=== PATIENT | female | born 1970 | race Caucasian/White ===

== ENCOUNTER → 2017-01-19 | Outpatient (CLI) | payer MEDICAID ==
[~2017-01-19] MED LIST: ALBUTEROL SULFATE 2.5 MG/3 ML VIAL NEB ONE
--- NOTE | 2017-01-21 17:27 | RAD ---
Procedure: XR CHEST 2 VIEWS Exam Date: 01/19/2017 1:02 PM CDT Ordering Provider: MARCOS Garner Clinical Indication: SHORTNESS OF BREATH Comparison: None Findings: The lungs are clear and well-aerated. No pleural effusion or pneumothorax. Cardiac silhouette is normal in size. Impression: No acute pulmonary process. Electronically signed by: Dayo Rizzo MD 01/21/2017 5:26 PM CDT
== END | disposition home or self-care (01) ==
LOC: LAB.O 12:45
PROVIDERS: ATTEND Nurse Practitioner Family
DX: E03.9 Hypothyroidism, unspecified (principal); E66.01 Morbid (severe) obesity due to excess calories; Z68.41 Body mass index [BMI] 40.0-44.9, adult; R06.02 Shortness of breath; R00.2 Palpitations; Z13.220 Encounter for screening for lipoid disorders
CPT/HCPCS: 71020; 93005; 94060; J7611

== ENCOUNTER → 2017-01-20 | Outpatient (CLI) | payer MEDICAID | END | disposition home or self-care (01) | LOC: YCFC.O 08:35 | PROVIDERS: ATTEND Nurse Practitioner Family | DX: E03.9 Hypothyroidism, unspecified (principal); Z00.00 Encounter for general adult medical examination without abnormal findings; Z13.220 Encounter for screening for lipoid disorders; E66.01 Morbid (severe) obesity due to excess calories; Z68.41 Body mass index [BMI] 40.0-44.9, adult ==

== ENCOUNTER → 2017-02-02 | Outpatient (CLI) | payer MEDICAID | END | disposition home or self-care (01) | LOC: LAB.O 09:20 | PROVIDERS: ATTEND Nurse Practitioner Family | DX: E03.9 Hypothyroidism, unspecified (principal); Z13.29 Encounter for screening for other suspected endocrine disorder ==

== ENCOUNTER 2019-04-18 08:37 | Emergency (ER) | payer SELFPAY ==
[2019-04-18 08:52] VITALS: BP 152/76; TEMP 96.9; O2SAT 97
[2019-04-18] MEDS ORDERED: SULFA/TRIMETH 800/160 (DS) TAB 1 EA TAB PO ONE (08:54)
--- NOTE | 2019-04-18 08:59 | ED.PDOC ---
History of Present Illness - General Chief Complaint: Skin/Abrasion/Tear Stated Complaint: rash,blisters Time Seen by Provider: 04/18/19 08:49 Source: patient Exam Limitations: no limitations - History of Present Illness Initial Comments: the patient is a 48-year-old female presenting to emergency room secondary to mild pustule formation on the bilateral armpits over the last 3 days. No evidence of any fever or extending infection. No evidence of any abscess formation. These are in the distribution of the shaving area. Timing/Duration: other - 3 days Severity: mild Improving Factors: nothing Worsening Factors: nothing Associated Symptoms: denies symptoms Allergies/Adverse Reactions: Allergies Butorphanol [From Stadol] Allergy (Verified 04/18/19 08:52) Home Medications: Ambulatory Orders Sulfa/Trimeth 800/160 (Ds) Tab [Bactrim DS Tab] 1 ea PO BID #10 tab 04/18/19 Review of Systems - Review of Systems Constitutional: States: no symptoms reported EENTM: States: no symptoms reported Respiratory: States: no symptoms reported Cardiology: States: no symptoms reported Gastrointestinal/Abdominal: States: no symptoms reported Genitourinary: States: no symptoms reported Musculoskeletal: States: no symptoms reported Skin: States: see HPI Neurological: States: no symptoms reported Endocrine: States: no symptoms reported All other Systems: No Change from Baseline Past Medical History (General) - Patient Medical History Hx Stroke: No Hx of COPD: Yes Hx Congestive Heart Failure: No Hx Diabetes: No Surgical History: cholecystectomy - Vaccination History Hx Influenza Vaccination: No - Social History Hx Tobacco Use: No - Female History Patient is a Female of Child Bearing Age (10 -59 yrs old): No Family Medical History - Family History Mother Family History: Unknown Living Status: Unknown Physical Exam - Physical Exam General Appearance: Alert, Comfortable, No apparent distress Eye Exam: bilateral normal Ears, Nose, Throat: hearing grossly normal Neck: full range of motion Respiratory: no respiratory distress, no accessory muscle use Cardiovascular/Chest: normal peripheral pulses, no edema Peripheral Pulses: radial,right: 2+, radial,left: 2+ Rectal Exam: deferred Back Exam: normal inspection Extremity: normal range of motion, no pedal edema, normal capillary refill Neurologic: doctor assistant II-XII nml as tested, alert, normal mood/affect, oriented x 3 Skin Exam: normal color - with the exception of the areas under the armpits which have multiple pustules. No abscess or extending cellulitis. Comments: Vital Signs - 24 hr 04/18/19 08:48 Temperature 96.9 F L Pulse Rate [ 80 Left Brachial] Respiratory 16 Rate Blood Pressure 152/76 [Left Arm] O2 Sat by Pulse 97 Oximetry Progress - Progress Progress: 04/18/19 08:56 the patient is a 48-year-old female presenting to emergency room secondary to pustulosis of her bilateral armpits likely caused by either staph or strep and spread with shaving. no evidence of any abscess formation or extending cellulitis at this time. The patient is going to be placed on Bactrim twice daily for 5 days. She needs to wash the areas twice a day with an antibacterial soap such as Dial. If any of the pustules are significantly expanding then she can unroof them to allow them to drain. As they are currently, I believe they will likely respond well to the oral antibiotic. Obviously no shaving for the next couple of weeks and she needs to get rid of her current razor. ER warnings were given for any worsening. Keep routine follow-up with primary care doctor. [id number] Departure - Departure Clinical Impression: Skin pustule Disposition: Discharge to Home or Self Care Condition: Fair Departure Forms: ED Discharge - Pt. Copy, Patient Portal Self Enrollment Instructions: DI for Wound Infection Diet: regular diet Activity: increase activity as tolerated Prescriptions: Sulfa/Trimeth 800/160 (Ds) Tab [Bactrim DS Tab] 1 ea PO BID #10 tab Home Medications: Ambulatory Orders Sulfa/Trimeth 800/160 (Ds) Tab [Bactrim DS Tab] 1 ea PO BID #10 tab 04/18/19 Additional Instructions: the patient is a 48-year-old female presenting to emergency room secondary to pustulosis of her bilateral armpits likely caused by either staph or strep and spread with shaving. no evidence of any abscess formation or extending cellulitis at this time. The patient is going to be placed on Bactrim twice daily for 5 days. She needs to wash the areas twice a day with an antibacterial soap such as Dial. If any of the pustules are significantly expanding then she can unroof them to allow them to drain. As they are currently, I believe they will likely respond well to the oral antibiotic. Obviously no shaving for the next couple of weeks and she needs to get rid of her current razor. ER warnings were given for any worsening. Keep routine follow-up with primary care doctor.
== END 2019-04-18 09:26 | disposition home or self-care (01) ==
LOC: ER 08:37
DX: L08.9 Local infection of the skin and subcutaneous tissue, unspecified (principal); J44.9 Chronic obstructive pulmonary disease, unspecified; Z88.8 Allergy status to other drugs, medicaments and biological substances